=== PATIENT | female | born 2000 | race Two or more races ===

== ENCOUNTER 2022-04-11 19:19 | Inpatient (IN) | payer MEDICAID, OTHER ==
[~2022-04-11] VITALS: Ht 162.6 cm; Wt 54.5 kg
[2022-04-11] MEDS ORDERED: ONDANSETRON HCL 4 MG/2 ML VIAL IV ONE (21:30)
[2022-04-11] MEDS ORDERED: PIPERACILLIN-TAZOB 3.375GM 100 ML IV ONE (21:30)
[2022-04-11] MEDS: SODIUM CHLORIDE 0.9% 1,000 ML IV SCH (22:34)
[2022-04-11 22:35] LABS: Calcium 8.8 mg/dL (8.5-10.1); Potassium 3.6 mmol/L (3.5-5.1)
[2022-04-11 22:40] LABS: Alcohol, Urine < 3.0 mg/dL (0-10); Amphetamine Screen, Urine NEGATIVE (NEGATIVE); Barbiturate Scree,Urine NEGATIVE (NEGATIVE); Benzodiazephine Screen, Urine NEGATIVE (NEGATIVE); Cannabinoid Screen, Urine POSITIVE (NEGATIVE); Cocaine Screen, Urine NEGATIVE (NEGATIVE); Opiate Scree,Urine NEGATIVE (NEGATIVE); Phencyclidine Screen, Urine NEGATIVE (NEGATIVE)
[2022-04-11 22:41] LABS: Albumin 4.2 g/dL (3.4-5.0); BUN/Creatinine Ratio 10.6; Bilirubin, Total 0.6 mg/dL (0.2-1.0); Total Protein 7.8 g/dL (6.4-8.2)
[2022-04-11 22:46] LABS: Basophils # (auto) 0 10 ^3/uL (0-0.2); Basophils % (auto) 0.1 % (0.0-2.0); Eosinophils # (auto) 0 10 ^3/uL (0-0.8); Hematocrit 39.6 % (36.0-46.0); Hemoglobin 13.1 g/dL (12.2-16.2); Lymphocytes # (auto) 0.6 10 ^3/uL (0.4-5.4); Mean Corpuscular Hemoglobin 28.7 pg (28.0-32.0); Mean Corpuscular Hgb Conc. 33.1 g/dL (32.0-36.0); Mean Corpuscular Volume 86.5 fL (80.0-100.0); Monocytes # (auto) 0.8 10 ^3/uL (0-1.3); Monocytes % (auto) 5.4 % (0.0-12.0); Neutrophils # (auto) 13.4 10 ^3/uL (1.6-8.6); Neutrophils % (auto) 90.5 % (37.0-80.0); Red Blood Cells 4.58 10^6/uL (4.0-5.20); Red Cell Distribution Width 13.1 % (11.8-14.3); White Blood Cell 14.9 10^3/uL (4.4-10.8)
[2022-04-11 22:50] LABS: Free T3 3.59 pg/mL (2.3-4.2); Free T4 (Free Thyroxine) 1.55 ng/dL (0.89-1.76)
[2022-04-11 23:14] LABS: INR 1.03 (0.9-1.15); Partial Thromboplastin Time 27.8 sec (24.6-33.4)
[2022-04-11 23:21] LABS: Urine Bacteria FEW /hpf (None Seen); Urine Blood Negative /uL (Negative); Urine Specific Gravity 1.017 (1.001-1.035); Urine WBC 1 /hpf (0 - 5)
[2022-04-12] MEDS: ONDANSETRON HCL 4 MG/2 ML VIAL IV PRN ×2 (00:46→17:32)
[2022-04-12 05:00] VITALS: BP 90/48
[2022-04-12] MEDS: PIPERACILLIN-TAZOB 3.375GM 100 ML IV SCH ×3 (06:35→22:00)
[2022-04-12 08:40] LABS: Basophils # (auto) 0 10 ^3/uL (0-0.2); Basophils % (auto) 0.4 % (0.0-2.0); Eosinophils # (auto) 0 10 ^3/uL (0-0.8); Hematocrit 37.5 % (36.0-46.0); Hemoglobin 12.5 g/dL (12.2-16.2); Lymphocytes # (auto) 0.8 10 ^3/uL (0.4-5.4); Lymphocytes % (auto) 7.9 % (10.0-50.0); Mean Corpuscular Hgb Conc. 33.4 g/dL (32.0-36.0); Mean Corpuscular Volume 86.9 fL (80.0-100.0); Monocytes # (auto) 0.7 10 ^3/uL (0-1.3); Monocytes % (auto) 6.5 % (0.0-12.0); Neutrophils # (auto) 9.1 10 ^3/uL (1.6-8.6); Neutrophils % (auto) 85.2 % (37.0-80.0); Red Blood Cells 4.31 10^6/uL (4.0-5.20); Red Cell Distribution Width 13.3 % (11.8-14.3); White Blood Cell 10.7 10^3/uL (4.4-10.8)
[2022-04-12 09:00] VITALS: BP 98/43
[2022-04-12 09:03] LABS: Calcium 8.5 mg/dL (8.5-10.1); Potassium 3.8 mmol/L (3.5-5.1)
[2022-04-12 09:06] LABS: BUN/Creatinine Ratio 8.7
[2022-04-12] MEDS ORDERED: ONDANSETRON HCL 4 MG/2 ML VIAL IV ONE (12:58)
[2022-04-12] MEDS ORDERED: KETOROLAC TROMETH 30 MG/ML 1ML VIAL IV ONE (12:58)
[2022-04-12] MEDS ORDERED: ePHEDrine SULFATE 50 MG/ML AMP IV ONE (12:58)
[2022-04-12] MEDS ORDERED: GLYCOPYRROLATE 0.2 MG/ML 1ML VIAL IV ONE (12:58)
[2022-04-12] MEDS ORDERED: HYDROmorphone HCL 2 MG/ML VL/or syr IV ONE (12:58)
[2022-04-12] MEDS ORDERED: PROPOFOL 10 MG/ML 20 ML IV ONE (12:58)
[2022-04-12] MEDS ORDERED: fentaNYL CITRATE 100 MCG/2 ML VL IV ONE (12:58)
[2022-04-12] MEDS ORDERED: LIDOCAINE 2% (LOCAL ANESTH.) PF 5ml SDV IJ ONE (12:58)
[2022-04-12] MEDS ORDERED: MIDAZOLAM HCL 2MG/2ML 2ml VIAL (1mg/ml) IV ONE (12:58)
[2022-04-12] MEDS ORDERED: DexAMETHasone SOD PHOS 10MG/1ML VIAL INJ IV ONE (12:58)
[2022-04-12 13:00] VITALS: BP 104/51
[2022-04-12] MEDS: SODIUM CHLORIDE 0.9% 1,000 ML IV SCH (14:40)
[2022-04-12 17:00] VITALS: BP 95/51
[2022-04-12] MEDS: MORPHINE SULFATE INJ 2 MG/ml SYRG IV PRN (17:35)
[2022-04-12] MEDS ORDERED: ROCURONIUM 10MG/ML 10ML VIAL IV ONE (21:37)
[2022-04-12] MEDS ORDERED: FAMOTIDINE (10MG/ML) 2ML VL IV ONE (21:37)
[2022-04-12] MEDS ORDERED: BUPIVACAINE HCL 0.25% P/F 10 ML VIAL ONE (21:43)
[2022-04-12] MEDS ORDERED: ceFAZolin 1GM/50ML 100 ML IV ONE (22:08)
[2022-04-12 23:27] VITALS: BP 138/45
[2022-04-12] MEDS ORDERED: HYDROmorphone HCL 2 MG/ML VL/or syr IV PRN (23:30)
[2022-04-12] MEDS ORDERED: ONDANSETRON HCL 4 MG/2 ML VIAL IV PRN (23:30)
[2022-04-13] MEDS: ONDANSETRON HCL 4 MG/2 ML VIAL IV PRN ×5 (00:50→23:09)
[2022-04-13 05:39] VITALS: BP 93/49
[2022-04-13] MEDS: MORPHINE SULFATE INJ 2 MG/ml SYRG IV PRN ×4 (05:44→23:10)
[2022-04-13] MEDS: PIPERACILLIN-TAZOB 3.375GM 100 ML IV SCH ×3 (05:45→23:08)
[2022-04-13 06:17] LABS: BUN/Creatinine Ratio 11.1; Calcium 8.5 mg/dL (8.5-10.1); Potassium 4.2 mmol/L (3.5-5.1)
[2022-04-13 06:33] LABS: Basophils # (auto) 0 10 ^3/uL (0-0.2); Basophils % (auto) 0.1 % (0.0-2.0); Eosinophils # (auto) 0 10 ^3/uL (0-0.8); Hematocrit 37.1 % (36.0-46.0); Hemoglobin 12.5 g/dL (12.2-16.2); Lymphocytes # (auto) 0.3 10 ^3/uL (0.4-5.4); Lymphocytes % (auto) 3.2 % (10.0-50.0); Mean Corpuscular Hemoglobin 29.4 pg (28.0-32.0); Mean Corpuscular Hgb Conc. 33.8 g/dL (32.0-36.0); Monocytes # (auto) 0.1 10 ^3/uL (0-1.3); Monocytes % (auto) 1.5 % (0.0-12.0); Neutrophils # (auto) 7.4 10 ^3/uL (1.6-8.6); Neutrophils % (auto) 95.2 % (37.0-80.0); Red Blood Cells 4.26 10^6/uL (4.0-5.20); Red Cell Distribution Width 13.3 % (11.8-14.3); White Blood Cell 7.8 10^3/uL (4.4-10.8)
[2022-04-13] MEDS: SODIUM CHLORIDE 0.9% 1,000 ML IV SCH ×2 (07:20→23:08)
[2022-04-13 08:00] VITALS: BP 135/59
[2022-04-13 09:00] VITALS: BP 130/52
[2022-04-13] MEDS: SENNA 8.6 MG TAB PO SCH ×2 (10:00→10:34)
[2022-04-13 13:00] VITALS: BP 88/19
[2022-04-13 17:00] VITALS: BP 90/60
[2022-04-13 22:00] VITALS: BP 116/56
[2022-04-14 05:00] VITALS: BP 97/43
[2022-04-14] MEDS: PIPERACILLIN-TAZOB 3.375GM 100 ML IV SCH ×2 (07:10→15:37)
[2022-04-14 08:57] VITALS: BP 97/50
[2022-04-14] MEDS: SENNA 8.6 MG TAB PO SCH (10:24)
[2022-04-14] MEDS ORDERED: METR500T PO (14:03)
[2022-04-14 14:58] VITALS: BP 98/56
[2022-04-14] MEDS: SODIUM CHLORIDE 0.9% 1,000 ML IV SCH (16:40)
== END 2022-04-14 17:47 | disposition home or self-care (01) | DRG 234 ==
LOC: ER 19:19 → OVERFLOW 22:06 → WEST WING 04-12 02:23
PROVIDERS: ADMIT Nurse Practitioner Family; ATTEND Internal Medicine Pulmonary Disease
PROC: 0DTJ4ZZ Resection of Appendix, Percutaneous Endoscopic Approach (ICD-10-PCS; principal; 2022-04-12 22:14)
DX: K35.80 Unspecified acute appendicitis (principal); Z20.822 Contact with and (suspected) exposure to COVID-19
CPT/HCPCS: 36415; 71045; 74177; 80048; 80053; 80307; 81001; 83605; 83690; 84439; 84443; 84481; 84702; 85025; 85610; 85730; 96365; G0378; J0690; J1100; J1885; J2001; J2250; J2405; J2543; J2704; J3490